=== PATIENT | male | born 2000 | race Caucasian/White ===

== ENCOUNTER 2020-03-14 16:39 | Emergency (ER) | payer OTHER, SELFPAY ==
--- NOTE | ~2020-03-14 | CT_ITS ---
EXAMINATION: CT abdomen pelvis w con DATE: 03/14/2020 18:25 INDICATION: Right lower quadrant abdominal pain. TECHNIQUE: Computed tomography (CT) of the abdomen and pelvis was performed with 100 mL Omnipaque 350 intravenous contrast. Automated exposure control and iterative reconstruction technique were employe d. The dose-length product was 251.47 mGy-cm. COMPARISON: None. FINDINGS: The visualized portions of the lung bases are clear without pneumonia or pleural effusion. The heart size is normal. No pericardial effusion. The liver, gallbladder, spleen, pancreas, adrenal glands, and kidneys are normal. The prostate is mildly enlarged. There are no dilated loops of bowel. The appendix is normal. There are no pathologically enlarged lymph nodes. There is no free intraperi toneal fluid. The bones are unremarkable. IMPRESSION: 1. No specific etiology for the patient's symptoms. Reviewed, dictated and finalized at location A.
[2020-03-14 16:50] VITALS: BP 129/80; PULSE 113; RESP 17; TEMP 36.5; O2SAT 98
--- NOTE | 2020-03-14 17:44 | ED.ABDPAIN ---
HPI - Abdominal Pain General Chief Complaint: Abdominal Pain Stated Complaint: STOMACH PAIN, V CONSTIPATED Time Seen by Provider: 03/14/20 17:43 Source: patient and family Mode of arrival: ambulatory Limitations: no limitations History of Present Illness HPI narrative: Patient is a 20-year-old male who presents for evaluation of abdominal pain. Pain is located mostly in the right lower quadrant, described as dull, aching in nature. Patient denies testicular pain or back pain. No dysuria or hematuria. Patient has had some associated intermittent constipation and diarrhea. No fever or chills. He reports nausea without emesis. Patient states all of his symptoms began after a night of binge drinking 6 nights ago. Patient states he had a KUB done by his primary care physician which showed he was constipated and normal lab draws. Patient has been taking magnesium citrate without any improvement in his pain. Related Data Allergies Allergy/AdvReac Type Severity Reaction Status Date / Time penicillin G Allergy Unknown Verified 02/05/14 18:17 Review of Systems Review of Systems: Narrative: CONSTITUTIONAL: Denies fever CARDIOVASCULAR: Denies chest pain RESPIRATORY: Denies cough or dyspnea. GASTROINTESTINAL: Reports nausea, constipation, diarrhea, and abdominal pain SKIN: Denies rash MUSCULOSKELETAL: Denies back pain NEUROLOGIC: Denies headache PMFSH Past Medical History Medical History (Updated 03/14/20 @ 19:00 by Krissy Mckeon MD) Hypothyroidism Surgical History Surgical History (Updated 03/14/20 @ 18:03 by Krissy Mckeon MD) H/O wisdom tooth extraction Social History Social History (Updated 03/14/20 @ 18:03 by Krissy Mckeon MD) Smoking status: Never smoker Alcohol intake: current Alcohol use details: social Substance use: never Gender identity (if verbalized by the patient): Male Exam Narrative: Exam Narrative: GENERAL: Awake, alert, conversant HEAD: Normocephalic, atraumatic. EYES: PERRLA and EOMI. ENT: Nares clear, no rhinorrhea or epistaxis. Mucous membranes moist. NECK: Supple. CHEST: No respiratory distress, breathing even and non labored HEART: Regular rate, sinus rhythm ABDOMEN:Non distended, non tender, positive right lower quadrant tenderness, no guarding, no rebound, negative Lopez sign, no epigastric tenderness EXTREMITIES: Normal range of motion. No edema. SKIN: Warm, dry, no rash. NEURO:No focal deficits. Alert and oriented x3 Course Vital Signs Vital signs: Vital Signs Temperature 36.5 C 03/14/20 16:50 Pulse Rate 113 H 03/14/20 16:50 Respiratory Rate 17 03/14/20 16:50 Blood Pressure 129/80 03/14/20 16:50 Pulse Oximetry 98 03/14/20 16:50 Temperature 36.5 C 03/14/20 16:50 Pulse Rate 113 H 03/14/20 16:50 Respiratory Rate 17 03/14/20 16:50 Blood Pressure 129/80 03/14/20 16:50 Pulse Oximetry 98 03/14/20 16:50 MDM - Abdominal Pain MDM Narrative Medical decision making narrative: Patient's abdomen is soft without significant pain or signs of surgical abdomen on serial exams. Lab and imaging evaluations are reviewed and patient is felt to be a reasonable candidate for outpatient management. Patient with borderline hyponatremia, ketones present in urine, consistent with dehydration. No acute kidney injury, no anion gap. CT scan without acute findings. Patient was instructed as to limitations of imaging and lab evaluation and encouraged to return to the emergency department her primary physician for repeat exam in 12 hours if continued or worsening pain. Differential Diagnosis Differential diagnosis: Likely abdominal pain, acute appendicitis, constipation, diverticulitis, gastroenteritis, pancreatitis and small bowel obstruction Lab Data Attestation: I reviewed the patient's lab results. Result diagrams: 03/14/20 17:30 03/14/20 17:31 Labs: Lab Results 03/14/20 03/14/20 03/14/20 Range/Units 17:30 17:3
[2020-03-14 17:46] LABS: Basophils Percent Auto 0.3 % (0.2-1.2); Eosinophils Percent Auto 0.4 % (0-4.4); Hematocrit 41.6 % (42.0-52.0); Hemoglobin 15.4 g/dL (14.0-18.0); Immature Granulocyte Absolute 0.02 K/mm3 (0.00-0.031); Immature Granulocyte Percent A 0.3 % (0-0.5); Lymphocytes Absolute Auto 1.08 K/mm3 (0.9-3.2); Lymphocytes Percent Auto 13.5 % (18.3-44.2); Mean Corpuscular Hemoglobin 32.4 pg (26-34); Mean Corpuscular Volume 87.6 fl (80-100); Mean Platelet Volume 9.8 fl (7.4-10.4); Monocytes Absolute Auto 0.6 K/mm3 (0.1-0.6); Monocytes Percent Auto 7.6 % (2.6-8.5); Neutrophils Absolute Auto 6.2 K/mm3 (1.3-6.7); Neutrophils Percent Auto 77.9 % (45.5-73.1); Platelet Count Result 217 k/mm3 (150-375); Red Blood Count 4.75 M/mm3 (4.6-6.20); Red Cell Distribution Width 11.8 % (11.5-14.5)
[2020-03-14 17:48] LABS: Add Urine Microscopic? YES; Appearance Urine Clear (Clear); Bilirubin Urine Negative (Negative); Blood Urine Negative (Negative); Color Urine Colorless (Yellow); Glucose Urine UA Negative (Negative); Ketones Urine 1+ mg/dL (Negative); Leukocyte Esterase Ur Negative LEU/UL (Negative); Mucus Urine Rare /lpf; Nitrate Urine Negative (Negative); Protein Urine Negative (Negative); Urobilinogen Urine Negative mg/dL (<2.0)
[2020-03-14 17:53] LABS: Specific Grav Ur 1.003 (1.001-1.035)
[2020-03-14 17:57] LABS: Alanine Aminotransferase 13 U/L (4-50); Albumin Level 4.8 g/dL (3.5-5.1); Alkaline Phosphatase 77 U/L (38-126); Aspartate Amino Transferase 25 U/L (17-59); Bilirubin,Total 1.2 mg/dL (0.2-1.3); Blood Urea Nitrogen 7 mg/dL (9-20); Calcium 9.2 mg/dL (8.4-10.2); Carbon Dioxide 20 mmol/L (22-30); Chloride 96 mmol/L (98-107); Estimated CRCL calculation 148 ml/min; Estimated Glomerular Filt Rate > 60; Glucose 90 mg/dL (75-110); Lipase 49 U/L (23-300); Potassium 3.6 mmol/L (3.4-5.0); Sodium 129 mmol/L (137-145)
[2020-03-14] MEDS: SODIUM CHLORIDE 0.9% IV 1,000 ML 999 ML IV CONT (18:32)
[2020-03-14] MEDS: ONDANSETRON INJ 4 MG/2 ML VIAL IV PUSH (18:33)
[2020-03-14 20:12] VITALS: RESP 20; O2SAT 98
== END 2020-03-14 19:45 | disposition home or self-care (01) ==
PROVIDERS: Emergency Provider Emergency Medicine; PCP Internal Medicine
DX: E86.0 Dehydration (principal); E87.1 Hypo-osmolality and hyponatremia; E03.9 Hypothyroidism, unspecified
CPT/HCPCS: 36415; 74177; 80053; 81001; 83690; 85025; 96361; 96374; 99284; J2405; J7030; Q9967

== ENCOUNTER 2021-10-14 15:28 | Outpatient (CLI) | payer OTHER, SELFPAY ==
--- NOTE | ~2021-10-14 | US_ITS ---
EXAMINATION: US scrotum doppler DATE: 10/14/2021 15:55 INDICATION: Left-sided testicular pain TECHNIQUE: Testicular sonogram utilizing grayscale and Doppler COMPARISON: None. FINDINGS: The right testis measures 3.6 x 2.2 x 1.8 cm. The left testis measures 3.1 x 2.0 x 1.7 cm. Symmetric normal grayscale appearance to both testes. There is normal vascular flow to both testes. The right e pididymis is normal with normal vascular flow. The left epididymis is normal with normal vascular marry w. There is no varicocele or hydrocele. IMPRESSION: 1. Normal scrotal ultrasound. Reviewed, dictated and finalized at location A. R WRAPPER
== END 2021-10-14 15:29 | disposition home or self-care (01) ==
LOC: ANHIMG 15:32
PROVIDERS: PCP Nurse Practitioner Adult Health; Visit Provider Nurse Practitioner Adult Health
DX: N50.819 Testicular pain, unspecified (principal)
CPT/HCPCS: 76870; 93976

== ENCOUNTER 2023-03-15 07:40 | Outpatient (CLI) | payer OTHER, SELFPAY ==
--- NOTE | ~2023-03-15 | MR_ITS ---
MR Venogram of the Brain Clinical Indication: Papilledema Technique MR venogram was done using coronal 2D time of flight technique. Findings: The superior sagittal sinus appears normal. The left and right transverse sinuses appears normal. The sigmoid sinuses appear normal bilaterally. The internal cerebral veins, vein of Brenton and straight sinus are patent. Impression: No evidence of venous sinus thrombosis. Reviewed, dictated and finalized at [facility]. Impression: No evidence of venous sinus thrombosis.
== END 2023-03-15 07:41 | disposition home or self-care (01) ==
LOC: ANHIMG 07:43
PROVIDERS: PCP Nurse Practitioner Adult Health; Visit Provider Student in an Organized Health Care Education/Training Program
DX: H47.10 Unspecified papilledema (principal)
CPT/HCPCS: 70544

== ENCOUNTER 2023-05-23 09:11 | Outpatient (CLI) | payer OTHER, SELFPAY ==
[2023-05-20 14:28] VITALS: BMI 28.0
--- NOTE | 2023-05-20 14:29 | PC.NURSE ---
Pre Radiology instructions Report to the outpatient [facility] on date 05/23/23 at time 0900 for procedure Time: 1100. YOU MAY BE MONITORED AT HOSPITAL FOR UP TO 4 HOURS AFTER YOUR PROCEDURE. A visitor will be allowed to accompany the patient into the hospital. You and your visitor will be asked to self-screen and do not enter if you have any COVID symptoms. A mask is OPTIONAL within the hospital. Patients are to have no food or drink 6 hours prior to procedure time Driving will be restricted after the procedure, you must have a person to drive you home. Labs will be drawn in preop area and once reviewed, you will be taken to radiology area for procedure. When the procedure is completed, you will be taken to outpatient where you will be monitored for several hours. You may have one visitor in this area. Other than holding anti-coagulants, patient may take other medication(s) as scheduled. Prior to your appointment date patients are instructed to hold anti-coagulants after discussing with ordering provider to stop. If unable to discontinue anti-coagulants please notify radiologist. ? No aspirin or warfarin (Coumadin) for 7 days prior to the procedure. ? No clopidogrel (Plavix), ticagrelor (Brilinta), prasugrel (Effient) or dabigatran (Pradaxa) for 5 days prior to the procedure. ? No rivaroxaban (Xarelto), apixaban (Eliquis), dipyridamole (Aggrenox or Persantine) or cilostazol (Pletal) for 2 days prior to the procedure. Medications to discontinue per physician: N/A Date to take last dose: N/A Please leave all valuables, including medications, at home the day of procedure. The hospital will not accept responsibility for valuables. Wear comfortable, loose fitting clothing.? Follow any additional instructions given to you from ordering provider. Telephone instructions given to PT - DOUGLAS and asked if any additional questions and then verbalized understanding. Patient advised to call scheduling provider office or registration scheduling [phone] if any additional questions.
--- NOTE | ~2023-05-23 | XR_ITS ---
EXAMINATION: XR lumbar puncture diagnostic DATE: 05/23/2023 11:21 INDICATION: Papilledema. Concern for idiopathic intracranial hypertension. TECHNIQUE: The procedure including the risks and benefits was discussed with the patient. Risks discu ssed included spinal headache, cerebrospinal fluid leak, bleeding, and infection. The patient underst ood the risks and agreed to proceed. A timeout was performed to verify the patient's name, date of , and procedure to be performed. The skin overlying the L4-L5 level was prepped and draped in usual sterile fashion. Subcutaneous 1% lidocaine was used for local anesthesia. A 22 gauge spinal n eedle was advanced under fluoroscopic guidance. The needle was removed and the entry site was cleaned and dressed. There were no immediate complications. A total of 1 fluoroscopic image(s) were obtaine d. The amount of fluoroscopy time used during this procedure was 0.2 minutes. The patient was taken t o the postoperative recovery area for observation. FINDINGS: Real-time fluoroscopy demonstrates the needle at the L4-L5 level. Opening pressure was 13 c m water. (Normal range is variably defined as 6-20 cm water and up to 25 cm water in obese patients. Pressure >25 cm water is one of the modified Dandy criteria for idiopathic intracranial hypertension) . 14 mL of clear, colorless fluid was collected in 4 tubes. IMPRESSION: 1. Successful fluoro-guided lumbar puncture with normal opening pressure of 13 cm water. Reviewed, dictated and finalized at location A.
[2023-05-23 09:25] VITALS: BP 152/82; PULSE 108; RESP 18; TEMP 36.5; O2SAT 99; BMI 27.5
--- NOTE | 2023-05-23 09:45 | SUR.PREOP ---
0945- Notified Dr. Dominguez patient had approximately 8 ounces of water at [address] Dominguez OK to proceed with procedure.
[2023-05-23 10:09] LABS: Mean Platelet Volume 10.4 fl (7.4-10.4); Platelet Count Result 218 k/mm3 (150-375)
[2023-05-23 10:22] LABS: Prothrombin Time 13.6 Seconds (11.1-14.7)
[2023-05-23 11:09] VITALS: BP 132/78; PULSE 69; RESP 16; O2SAT 98
[2023-05-23 11:30] VITALS: BP 135/88; PULSE 73; RESP 16; O2SAT 100
[2023-05-23 11:51] LABS: Glucose CSF 52 mg/dL (40-70); Total Protein CSF 52 mg/dL (12-60)
[2023-05-23 11:54] LABS: CSF source CSF
[2023-05-23 11:55] LABS: Appearance CSF Clear (Clear); Color CSF Colorless (Colorless); Nucleated Cell CSF 1 /uL (0-5); Red Blood Cell CSF 0 (0-2)
[2023-05-23 12:00] VITALS: BP 132/78; PULSE 65; RESP 16; O2SAT 100
[2023-05-23 12:13] LABS: Lymphocytes CSF 67 % (40-80); Monocytes CSF 33 % (15-45)
--- NOTE | 2023-05-23 12:55 | SUR.PHASEII ---
DR CHAUDHARY UPDATED AND OK TO D/C PATIENT AT THIS TIME
[2023-05-23 13:00] VITALS: BP 127/82; PULSE 69; RESP 18; O2SAT 100
== END 2023-05-23 13:06 | disposition home or self-care (01) ==
PROVIDERS: PCP Nurse Practitioner Adult Health; Referring Provider Student in an Organized Health Care Education/Training Program; Visit Provider Radiology Diagnostic Radiology
PROC: 009U3ZZ Drainage of Spinal Canal, Percutaneous Approach (ICD-10-PCS; CPT 62328; principal; 2023-05-23 11:00)
DX: Z01.818 Encounter for other preprocedural examination (principal); H47.10 Unspecified papilledema
CPT/HCPCS: 36415; 62328; 82945; 84157; 85049; 85610; 87070; 89051